=== PATIENT | male | born 1990 | race Caucasian/White ===

== ENCOUNTER 2019-04-17 22:53 | Emergency (ER) | payer OTHER ==
[~2019-04-17] VITALS: Ht 180.3 cm; Wt 68.0 kg
[~2019-04-17 22:53] MED LIST: ALBU90OI INH; Amoxicillin500 MG PO; Cleocin HCl300 MG PO; IBUP600 PO; Naprosyn500 MG PO; Peridex480 ML PO; Ra Anti-Tussiv237 ML PO; Zithromax250 MG PO
[2019-04-17] MEDS ORDERED: BACITRAYCIN PLU28 GM TOP (23:37)
== END 2019-04-17 23:54 | disposition home or self-care (01) ==
LOC: ER 22:53
DX: T23.231A Burn of second degree of multiple right fingers (nail), not including thumb, initial encounter (principal); T31.0 Burns involving less than 10% of body surface; X10.2XXA Contact with fats and cooking oils, initial encounter; F17.200 Nicotine dependence, unspecified, uncomplicated
CPT/HCPCS: 16020; 99283-25

== ENCOUNTER → 2019-11-13 | Outpatient (CLI) | payer SELFPAY ==
[~2019-11-13] MED LIST changes: +BACITRAYCIN PLU28 GM TOP
[2019-11-13 16:43] LABS: BASOPHILS PERCENT AUTO 1 % (0-2); EOSINOPHILS ABSOLUTE AUTO 0.34 K/mm3 (0.00-0.68); EOSINOPHILS PERCENT AUTO 3 % (0-6); Hematocrit 44.2 % (37.0-53.0); Hemoglobin 15.2 g/dL (13.5-17.5); IMMATURE GRAN ABSOLUTE AUTO 0.02 K/mm3 (0.00-0.10); IMMATURE GRAN PERCENT AUTO 0 % (0-1); LYMPHOCYTES ABSOLUTE AUTO 2.52 K/mm3 (0.84-5.20); LYMPHOCYTES PERCENT AUTO 25 % (21-46); MONOCYTES ABSOLUTE AUTO 0.67 K/mm3 (0.16-1.47); MONOCYTES PERCENT AUTO 7 % (4-13); Mean Corpuscular HGB 29.8 pg (26.0-34.0); Mean Corpuscular HGB Conc 34.4 g/dL (31.5-36.5); Mean Corpuscular Volume 87 fL (80-100); Mean Platelet Volume 9.2 fL (9.1-12.4); NEUTROPHILS ABSOLUTE AUTO 6.26 K/mm3 (1.96-9.15); NEUTROPHILS PERCENT AUTO 63 % (41-73); Platelet Count 418 K/mm3 (150-400); RDW Coefficient Variation 12.5 % (11.7-14.2); RDW Standard Deviation 39.7 fL (35.1-46.3); White Blood Cell Count 9.91 K/mm3 (4.00-11.30)
[2019-11-13 16:50] LABS: Alanine Aminotransfer (ALT/SGP 40 U/L (12-78); Albumin, Blood 4.8 g/dL (3.4-5.0); Albumin/Globulin Ratio 1.5 (0.8-1.8); Alk Phos 87 U/L (40-126); Anion Gap 8 mmol/L (6-16); Aspartate Aminotrans (AST/SGOT 24 U/L (12-37); Bilirubin, Total 0.2 mg/dL (0.1-1.0); Blood Urea Nitrogen 20 mg/dL (8-24); Bun/Creatinine Ratio 23.5 (12.0-20.0); CO2, Blood 29 mmol/L (21-32); Calcium, Blood 9.4 mg/dL (8.5-10.1); Chloride, Blood 101 mmol/L (98-108); Creatinine, Blood 0.85 mg/dL (0.60-1.20); Globulin, Blood 3.3 g/dL (2.2-4.0); Glomerular Filtration Rate >60 (60-); Glucose, Blood 97 mg/dL (70-99); Potassium, Blood 4.2 mmol/L (3.5-5.5); Sodium, Blood 138 mmol/L (136-145); Total Protein, Blood 8.1 g/dL (6.4-8.2)
== END | disposition home or self-care (01) ==
LOC: LAB EV 16:33 → LAB SHORT 16:33
PROVIDERS: Physician Assistant
DX: R10.9 Unspecified abdominal pain (principal)
CPT/HCPCS: 80053; 83690; 85025

== ENCOUNTER 2020-02-21 21:11 | Emergency (ER) | payer OTHER ==
[~2020-02-21] VITALS: Ht 180.3 cm; Wt 59.0 kg
== END 2020-02-21 22:02 | disposition home or self-care (01) ==
LOC: ER 21:11
DX: R40.4 Transient alteration of awareness (principal); F17.210 Nicotine dependence, cigarettes, uncomplicated
CPT/HCPCS: 99284

== ENCOUNTER 2020-08-07 19:15 | Emergency (ER) | payer OTHER ==
[~2020-08-07] VITALS: Ht 180.3 cm; Wt 79.8 kg
[2020-08-07] MEDS ORDERED: BUPRENORPHN-NA1 EAC2 SL (19:27)
[2020-08-07] MEDS ORDERED: Ventolin/Prove6.7 GM (19:27)
[2020-08-07] MEDS ORDERED: ALBU90OI INH (21:37)
== END 2020-08-07 22:13 | disposition home or self-care (01) ==
LOC: ER 19:15
DX: J06.9 Acute upper respiratory infection, unspecified (principal); J45.909 Unspecified asthma, uncomplicated; F17.210 Nicotine dependence, cigarettes, uncomplicated; Z20.828 Contact with and (suspected) exposure to other viral communicable diseases; Z76.0 Encounter for issue of repeat prescription
CPT/HCPCS: 71046; 99283-25; U0003

== ENCOUNTER 2020-08-31 10:53 | Emergency (ER) | payer OTHER ==
[~2020-08-31] VITALS: Ht 180.3 cm; Wt 77.1 kg
[~2020-08-31 10:53] MED LIST changes: +BUPRENORPHN-NA1 EAC2 SL; +Ventolin/Prove6.7 GM
== END 2020-08-31 12:33 | disposition home or self-care (01) ==
LOC: ER 10:53
DX: R05 Cough (principal); R52 Pain, unspecified; F17.200 Nicotine dependence, unspecified, uncomplicated; Z79.899 Other long term (current) drug therapy; Z20.828 Contact with and (suspected) exposure to other viral communicable diseases
CPT/HCPCS: 99282

== ENCOUNTER 2020-09-15 08:16 | Emergency (ER) | payer OTHER ==
[~2020-09-15] VITALS: Ht 180.3 cm; Wt 77.1 kg
[2020-09-15] MEDS ORDERED: IBU800 MG PO (10:46)
== END 2020-09-15 11:27 | disposition home or self-care (01) ==
LOC: ER 08:16
DX: S63.501A Unspecified sprain of right wrist, initial encounter (principal); J45.909 Unspecified asthma, uncomplicated; F17.200 Nicotine dependence, unspecified, uncomplicated; Z79.891 Long term (current) use of opiate analgesic; W22.8XXA Striking against or struck by other objects, initial encounter
CPT/HCPCS: 29125; 73130; 99283-25